=== PATIENT | female | born 1985 | race Caucasian/White ===

== ENCOUNTER 2016-08-24 16:15 | Emergency (ER) | payer BC ==
[~2016-08-24] VITALS: Wt 97.5 kg
[~2016-08-24 16:15] MED LIST: HYDROCODONE BIT1 T11 PO; ORTHO TRI-CYCL1 EACH PO
== END 2016-08-24 16:32 | disposition home or self-care (01) ==
LOC: ED 16:15
DX: H00.014 Hordeolum externum left upper eyelid (principal); F17.200 Nicotine dependence, unspecified, uncomplicated; Z79.899 Other long term (current) drug therapy

== ENCOUNTER → 2020-06-05 | Outpatient (CLI) | payer BC | END | disposition home or self-care (01) | LOC: COVID19 13:26 | PROVIDERS: ATTEND Internal Medicine | DX: Z20.822 Contact with and (suspected) exposure to COVID-19 (principal) ==

== ENCOUNTER 2024-03-05 12:46 | Emergency (ER) | payer OTHER ==
[~2024-03-05] VITALS: Ht 167.6 cm; Wt 99.8 kg
[2024-03-05] MEDS ORDERED: Acetaminophen/Oxycodone 5 MG/325 MG TABLET PO ONE (14:45)
[2024-03-05] MEDS ORDERED: MELOXICAM15 MG PO (14:50)
== END 2024-03-05 15:27 | disposition home or self-care (01) ==
LOC: ED 12:46
DX: S93.401A Sprain of unspecified ligament of right ankle, initial encounter (principal); X50.1XXA Overexertion from prolonged static or awkward postures, initial encounter; Y93.89 Activity, other specified; Y92.89 Other specified places as the place of occurrence of the external cause; Y99.8 Other external cause status